=== PATIENT | female | born 1965 | race African-American/Black ===

== ENCOUNTER 2017-05-31 12:06 | Observation (INO) | payer OTHER ==
[2017-05-31] VITALS (7 sets, daily range): BP systolic 113–171; BP diastolic 61–90; PULSE 75–91; RESP 15–20; TEMP 97.9–98.5; O2SAT 98–99
[~2017-05-31] VITALS: Ht 165.1 cm; Wt 75.0 kg
[2017-05-31] MEDS ORDERED: AMLO5TAB2 PO (12:15)
--- NOTE | 2017-05-31 12:45 | RADRPT ---
EXAM DATE/TIME: 05/31/2017 12:29 [facility] COMPARISON: No previous studies available for comparison. INDICATIONS : Cephalgia with left side numbness. RADIATION DOSE: 32.60 CTDIvol (mGy) MEDICAL HISTORY : Hypertension. SURGICAL HISTORY : Hysterectomy. ENCOUNTER: Initial ACUITY: 1 day PAIN SCALE: 6/10 LOCATION: Bilateral cranial TECHNIQUE: Multiple contiguous axial images were obtained of the head. Using automated exposure control and adj ustment of the mA and/or kV according to patient size, radiation dose was kept as low as reasonably a chievable to obtain optimal diagnostic quality images. DICOM format image data is available electro nically for review and comparison. FINDINGS: CEREBRUM: The ventricles are normal for age. No evidence of midline shift, mass lesion, hemorrhage or acute in farction. No extra-axial fluid collections are seen. POSTERIOR FOSSA: The cerebellum and brainstem are intact. The 4th ventricle is midline. The cerebellopontine angle i s unremarkable. EXTRACRANIAL: The visualized portion of the orbits is intact. SKULL: The calvaria is intact. No evidence of skull fracture. CONCLUSION: Normal examination. Daniel Boswell MD on May 31, 2017 at 12:41 Board Certified Radiologist. This report was verified electronically.
[2017-05-31 12:49] LABS: AUTOMATED NEUTROPHIL # 4.8 TH/MM3 (1.8-7.7); BASOPHIL # 0.1 TH/MM3 (0-0.2); BASOPHIL % 0.8 % (0.0-2.0); EOSINOPHIL # 0.1 TH/MM3 (0-0.4); EOSINOPHIL % 0.7 % (0.0-4.0); HEMATOCRIT 39.8 % (35.0-46.0); HEMO FLAGS DIFF FINAL; LYMPH % 37.9 % (9.0-44.0); LYMPHOCYTE # 3.4 TH/MM3 (1.0-4.8); MEAN CELL VOLUME 91.8 FL (80.0-100.0); MEAN CORPUSCULAR HEMOGLOBIN 30.7 PG (27.0-34.0); MEAN CORPUSCULAR HGB CONC 33.5 % (32.0-36.0); MONO % 6.9 % (0.0-8.0); NEUT % 53.7 % (16.0-70.0); PLATELET COUNT 222 TH/MM3 (150-450); RED BLOOD COUNT 4.33 MIL/MM3 (4.00-5.30); RED CELL DISTRIBUTION WIDTH 13.4 % (11.6-17.2); WHITE BLOOD COUNT 8.9 TH/MM3 (4.0-11.0)
[2017-05-31 12:58] LABS: APTT (PATIENT) 23.4 SEC (24.3-30.1); PROTHROMBIN TIME - PATIENT 10.7 SEC (9.8-11.6)
--- NOTE | 2017-05-31 13:08 | RADRPT ---
EXAM DATE/TIME: 05/31/2017 12:53 [facility] COMPARISON: No previous studies available for comparison. INDICATIONS : Chest pain and shortness of breath. MEDICAL HISTORY : Hypertension. Diabetes mellitus type II. SURGICAL HISTORY : None. ENCOUNTER: Initial ACUITY: 1 day PAIN SCORE: 8/10 LOCATION: Bilateral chest FINDINGS: Portable AP view of the chest demonstrates a normal-sized cardiac silhouette. No effusion, consolidat ion, or pneumothorax is visualized. Lungs are underinflated with atelectasis at the lung bases. The b ones and soft tissues demonstrate no acute abnormality. CONCLUSION: Underinflated examination with mild atelectasis at the lung bases. No acute cardiopulmonary abnormali ty is identified. Daniel Townsend MD on May 31, 2017 at 13:06 Board Certified Radiologist. This report was verified electronically.
[2017-05-31 13:10] LABS: ANION GAP 8 MEQ/L (5-15); AST (GOT) 17 U/L (15-37); BICARBONATE 23.6 MEQ/L (21.0-32.0); BLOOD UREA NITROGEN 11 MG/DL (7-18); CHLORIDE 107 MEQ/L (98-107); GLOMERULAR FILTRATION RATE 76 ML/MIN (>89); MAGNESIUM 1.8 MG/DL (1.5-2.5); POTASSIUM 3.6 MEQ/L (3.5-5.1); SODIUM (NA) 139 MEQ/L (136-145)
[2017-05-31 13:15] LABS: ALKALINE PHOSPHATASE 114 U/L (45-117); ALT (GPT) 20 U/L (10-53); CREATINE KINASE 166 U/L (26-192); TOTAL BILIRUBIN ADULT 0.3 MG/DL (0.2-1.0)
[2017-05-31] MEDS ORDERED: NITROGLYCERIN 0.4 MG SL 25 TABS/BTL SL ONE (13:15)
[2017-05-31] MEDS ORDERED: ASPIRIN 325 MG TAB PO ONE (13:15)
[2017-05-31 13:27] LABS: CKMB 1.4 NG/ML (0.5-3.6)
--- NOTE | 2017-05-31 13:29 | PD ---
HPI Chief Complaint: Chest Pain Time Seen by Provider: 12:16 Travel History International Travel<30 days: No Contact w/Intl Traveler<30days: No Traveled to known affect area: No History of Present Illness HPI 51-year-old female presents by ambulance with headache and chest pain since 8 AM this morning. She states that she feels tingly to the left side of her body and face and this is been going on since early this morning with her headache and chest pain. She states no other specific complaints on initial evaluation But is a poor historian. She states she feels worse when she moves around. She denies other modifying factors. She has not taken anything for her headache or chest pain yet today including aspirin. She states she didn't take her blood pressure medication this morning. Significant additional details are limited and supplemented by the ambulance team [facility] Past Medical History Cardiovascular Problems: Yes Patient Takes Glucophage: No Hypertension: Yes ?: Not Past Surgical History Gynecologic Surgery: Yes Hysterectomy: Yes Social History Alcohol Use: No Tobacco Use: No Substance Use: No Allergies-Medications (Allergen,Severity, Reaction): Coded Allergies: morphine (Verified Allergy, Severe, 05/31/17) Reported Meds & Prescriptions Reported Meds & Active Scripts Active Reported Amlodipine (Amlodipine Besylate) 5 Mg Tab 5 Mg PO BID Review of Systems Except as stated in HPI: all other systems reviewed are Neg Physical Exam Narrative GENERAL: Well-nourished, well-developed patient. SKIN: Warm and dry. HEAD: Normocephalic and atraumatic. EYES: No injection or drainage. Pupils pinpoint ENT: No nasal drainage noted. NECK: Supple, trachea midline. CARDIOVASCULAR: Regular rate and rhythm RESPIRATORY: Breath sounds equal bilaterally. No accessory muscle use. GASTROINTESTINAL: Abdomen soft, non-tender, nondistended. EXTREMITIES: No edema. NEUROLOGICAL: Awake and alert. Motor and sensory grossly within normal limits other than states left side of face feels tingly. Normal speech. No facial droop, 5 out of 5 in all 4 extremities, equal grasp bilaterally after effort because patient states it is painful Data Data Last Documented VS Vital Signs Date Time Temp Pulse Resp B/P (MAP) Pulse Ox O2 Delivery O2 Flow Rate FiO2 05/31/17 14:36 75 15 146/87 (106) 99 Room Air Orders Orders Magnesium (Mg) (05/31/17 12:17) Phosphorus (Po4) (05/31/17 12:17) Complete Blood Count With Diff (05/31/17 12:17) Comprehensive Metabolic Panel (05/31/17 12:17) Ckmb (Isoenzyme) Profile (05/31/17 12:17) Troponin I (05/31/17 12:17) Urinalysis - C+S If Indicated (05/31/17 12:17) Act Partial Throm Time (Ptt) (05/31/17 12:17) Prothrombin Time / Inr (Pt) (05/31/17 12:17) Ct Brain W/O Iv Contrast(Rout) (05/31/17 ) Chest, Single Ap (05/31/17 ) Electrocardiogram (05/31/17 ) Iv Access Insert/Monitor (05/31/17 12:17) Ecg Monitoring (05/31/17 12:17) Oximetry (05/31/17 12:17) Nitroglycerin Sl (Nitrostat Sl) (05/31/17 13:15) Aspirin (Aspirin) (05/31/17 13:15) Nursing Bedside Swallow Assess .ONCE (05/31/17 13:12) CKMB (05/31/17 12:23) CKMB% (05/31/17 12:23) Prochlorperazine Inj (Compazine Inj) (05/31/17 14:30) Diphenhydramine Inj (Benadryl Inj) (05/31/17 14:30) Ketorolac Inj (Toradol Inj) (05/31/17 14:30) Admit Order (Ed Use Only) (05/31/17 15:15) Labs Laboratory Tests Test 05/31/17 12:23 05/31/17 14:15 White Blood Count 8.9 TH/MM3 Red Blood Count 4.33 MIL/MM3 Hemoglobin 13.3 GM/DL Hematocrit 39.8 % Mean Corpuscular Volume 91.8 FL Mean Corpuscular Hemoglobin 30.7 PG Mean Corpuscular Hemoglobin Concent 33.5 % Red Cell Distribution Width 13.4 % Platelet Count 222 TH/MM3 Mean Platelet Volume 9.0 FL Neutrophils (%) (Auto) 53.7 % Lymphocytes (%) (Auto) 37.9 % Monocytes (%) (Auto) 6.9 % Eosinophils (%) (Auto) 0.7 % Basophils (%) (Auto) 0.8 % Neutrophils # (Auto) 4.8 TH/MM3 Lymphocytes # (Auto) 3.4 TH/MM3 Monocytes # (Auto) 0.6 TH/MM3 Eosinophils # (Auto) 0.1 TH/MM3 Basophils # (Auto) 0.1 TH/MM3 CBC Comment DIFF FINAL Differential Comment Prothrombin Time 10.7 SEC Prothromb Time International Ratio 1.0 RATIO Activated Partial Thromboplast Time 23.4 SEC Blood Urea Nitrogen 11 MG/DL Creatinine 0.94 MG/DL Random Glucose 92 MG/DL Total Protein 8.1 GM/DL Albumin 3.8 GM/DL Calcium Level 9.0 MG/DL Phosphorus Level 2.3 MG/DL Magnesium Level 1.8 MG/DL Alkaline Phosphatase 114 U/L Aspartate Amino Transf (AST/SGOT) 17 U/L Alanine Aminotransferase (ALT/SGPT) 20 U/L Total Bilirubin 0.3 MG/DL Sodium Level 139 MEQ/L Potassium Level 3.6 MEQ/L Chloride Level 107 MEQ/L Carbon Dioxide Level 23.6 MEQ/L Anion Gap 8 MEQ/L Estimat Glomerular Filtration Rate 76 ML/MIN Total Creatine Kinase 166 U/L Creatine Kinase MB 1.4 NG/ML Troponin I LESS THAN 0.02 NG/ML Urine Color COLORLESS Urine Turbidity CLEAR Urine pH 6.0 Urine Specific [place] 1.003 Urine Protein NEG mg/dL Urine Glucose (UA) NEG mg/dL Urine Ketones NEG mg/dL Urine Occult Blood NEG Urine Nitrite NEG Urine Bilirubin NEG Urine Urobilinogen LESS THAN 2.0 MG/DL Urine Leukocyte Esterase NEG Urine WBC LESS THAN 1 /hpf Urine Squamous Epithelial Cells <1 /hpf Microscopic Urinalysis Comment CULT NOT INDICATED MDM Medical Decision Making Medical Screen Exam Complete: Yes Emergency Medical Condition: Yes Medical Record Reviewed: Yes (past history confirmed) Interpretation(s) EKG shows NSR, no ST elevation or depression, and no arrhythmias. No significant T-wave inversions. CBC & BMP Diagram 05/31/17 12:23 Total Protein 8.1, Albumin 3.8, Calcium Level 9.0, Phosphorus Level 2.3 L, Magnesium Level 1.8, Alkaline Phosphatase 114, Aspartate Amino Transf (AST/SGOT ) 17, Alanine Aminotransferase (ALT/SGPT) 20, Total Bilirubin 0.3 Last [address] 05/31/17 0000 Signed Impressions: Service Date/Time: Wednesday, May 31, 2017 12:29 - CONCLUSION: Normal examination. Daniel Boswell MD Chest X-Ray 05/31/17 0000 Signed Impressions: Service Date/Time: Wednesday, May 31, 2017 12:53 - CONCLUSION: Underinflated examination with mild atelectasis at the lung bases. No acute cardiopulmonary abnormality is identified. Daniel Townsend MD Differential Diagnosis Intercranial bleed, atypical stroke, cardiac, musculoskeletal, gastritis, migraine Narrative Course Will check blood work, chest x-ray, CT brain and reevaluate CT brain without bleed will dose with aspirin and nitroglycerin and reevaluate Will give migraine cocktail with Toradol, Benadryl, Compazine and recheck On recheck patient states her head is still feeling better but she is still having chest pressure. Agrees to chest pain center observation. Can follow-up outpatient for likely migraine with associated numbness Physician Communication Physician Communication dr ontiveros states in terms of neurologic workup can follow up outpatient if symptoms stay the same and will need blood pressure control Diagnosis Primary Impression: Chest pain Qualified Codes: R07.9 - Chest pain, unspecified Admitting Information Admitting Physician Requests: Observation Gosia Sandhu MD May 31, 2017 13:29
[2017-05-31] MEDS ORDERED: diphenhydrAMINE HCL 50 MG/ML VIAL IVP ONE (14:30)
[2017-05-31] MEDS ORDERED: KETOROLAC TROMETHAMINE 30 MG/ML (IVP) VIAL IV PUSH ONE (14:30)
[2017-05-31] MEDS ORDERED: PROCHLORPERAZINE INJ 10 MG/2 ML VIAL IVP ONE (14:30)
[2017-05-31 14:53] LABS: BLOOD, URINE NEG (NEG); GLUCOSE,URINE NEG (NEG); KETONE, URINE NEG (NEG); NITRITE,URINE NEG (NEG); SQUAMOUS EPITHELIAL CELL URINE <1 /hpf (0-5); URINE COLOR COLORLESS (YELLW/STRAW)
[2017-05-31 14:55] LABS: COMMENT (UR) CULT NOT INDICATED; CULTURE IF INDICATED CULT NOT INDICATED
[2017-05-31] MEDS ORDERED: TEMAZEPAM 15 MG CAP PO PRN (16:00)
[2017-05-31] MEDS ORDERED: cloNIDine HCL 0.1 MG TAB PO PRN (16:00)
[2017-05-31] MEDS ORDERED: ALPRAZolam 0.25 MG TAB PO PRN (16:00)
[2017-05-31] MEDS ORDERED: RESP: ALBUTEROL 2.5 MG/IPRATROPIUM 0.5 MG NEB (PRN) INH (16:00)
[2017-05-31] MEDS ORDERED: ONDANSETRON HCL 4 MG/2 ML VIAL IV PUSH PRN (16:00)
[2017-05-31] MEDS ORDERED: SODIUM CHLORIDE 0.9% FLUSH 5 ML FLUSH IVF PRN (16:00)
--- NOTE | 2017-05-31 16:09 | HHI.HP ---
HPI Primary Care Physician No Primary Care Physician Chief Complaint Chest pain and headache History of Present Illness This is a 51-year-old female history of hypertension and hyperlipidemia that presents via ambulance with a complaint of developing a chest tightness and frontal headache while she was at work. She was doing prep work in the kitchen. Describes the headache as a frontal headache and lasted for hours. The chest discomfort was tightness and she states that it was across the chest. Chest discomfort lasted 30 minutes. She was short of breath and diaphoretic no nausea. She felt lightheaded and had tingling sensations in all extremities. Denies weakness. Denies headache. Denies loss of consciousness. Found nothing to worsen or improve her symptoms. Headache and discomfort are currently resolved. Denies history of coronary artery disease. States she was evaluated about a year ago at a different hospital and attempted a stress test on the treadmill but was unable to walk long enough and was converted to a chemical stress test which she states was normal. History of hypertension voices compliance with the medication. Also states she has hyperlipidemia but has never had medication for this. Denies recent illness. Denies fevers or chills. Review of Systems General: Patient denies fevers, chills recent, and recent travel HEENT: Complains of frontal headache. Patient denies sore throat, difficulty swallowing. Cardiovascular: Has the chest discomfort as mentioned above. Denies sensation of heart beating rapidly or irregularly. No syncope. Complained of diaphoresis. Respiratory: She was short of breath. Denies inspirational chest discomfort. Denies coughing wheezing or hemoptysis. GI: Patient denies nausea, vomiting, diarrhea, abdominal pain, bloody stools. Musculoskeletal: Patient denies joint pain or edema. Denies calf pain or edema. Neurovascular: Had tingling in all extremities. Patient denies numbness, weakness in extremities. Complained of frontal headache. Endocrine: Denies polyuria and polydipsia. Hematologic: Denies easy bruising. Skin: Denies rash or itching. Past Family Social History Allergies: Coded Allergies: morphine (Verified Allergy, Severe, 05/31/17) Past Medical History I pretension and hyperlipidemia. Denies diabetes and CAD. Reported Medications Reported Meds & Active Scripts Active Reported Amlodipine (Amlodipine Besylate) 5 Mg Tab 5 Mg PO BID Active Ordered Medications Current Medications Medications (Trade) Dose Ordered Sig/Nick Route Start Time Stop Time Status Last Admin (NS Flush) 2 ml UNSCH PRN IVF 05/31/17 16:00 UNV (NS Flush) 2 ml BID IVF 05/31/17 21:00 UNV (Tylenol) 500 mg Q4H PRN PO 05/31/17 16:00 UNV (Zofran Inj) 4 mg Q6H PRN IV PUSH 05/31/17 16:00 UNV (Aspirin) 325 mg DAILY PO 06/01/17 09:00 UNV (Restoril) 15 mg HS PRN PO 05/31/17 16:00 UNV (Xanax) 0.25 mg Q8H PRN PO 05/31/17 16:00 UNV (Duoneb Neb) 1 ampule Q4HR NEB PRN INH 05/31/17 16:00 UNV (Catapres) 0.1 mg Q4H PRN PO 05/31/17 16:00 UNV Family History Denies family history of CAD but states she has a brother that had a stroke his 50s. Social History Nonsmoker. Denies alcohol or illicit drugs. Physical Exam Vital Signs Vital Signs Date Time Temp Pulse Resp B/P (MAP) Pulse Ox O2 Delivery O2 Flow Rate FiO2 05/31/17 14:36 75 15 146/87 (106) 99 Room Air 05/31/17 12:19 18 98 Room Air 05/31/17 12:17 91 18 171/90 (117) 99 Physical Exam GENERAL: This is a well-nourished, well-developed patient, in no apparent distress. Patient speaks in clear complete sentences. Patient is pleasant. HEENT: Head is atraumatic and normocephalic. Neck is supple without lymphadenopathy and trachea is midline. No JVD or carotid bruits. CARDIOVASCULAR: Regular rate and rhythm without murmurs, gallops, or rubs. RESPIRATORY: Clear to auscultation. Breath sounds equal bilaterally. No wheezes , rales, or rhonchi. Chest wall is tender essentially throughout the entire anterior chest wall although she states that it is not the same discomfort that brought her to the ED. No use of accessory muscles. GASTROINTESTINAL: Abdomen is nontender, nondistended. Abdomen soft. No obvious pulsatile mass or bruit. No CVA tenderness. Strong femoral pulses bilaterally. Normal bowel sounds in all quadrants. MUSCULOSKELETAL: Patient is moving upper and lower extremities freely. No calf tenderness or edema, no Homans sign. Strong pulses in upper and lower extremities. NEUROLOGICAL: Patient is alert and oriented. Cranial nerves 2-12 are grossly intact. No focal deficits and speech is clear. SKIN: No rash and turgor is normal. Laboratory Laboratory Tests Test 05/31/17 12:23 05/31/17 14:15 White Blood Count 8.9 Red Blood Count 4.33 Hemoglobin 13.3 Hematocrit 39.8 Mean Corpuscular Volume 91.8 Mean Corpuscular Hemoglobin 30.7 Mean Corpuscular Hemoglobin Concent 33.5 Red Cell Distribution Width 13.4 Platelet Count 222 Mean Platelet Volume 9.0 Neutrophils (%) (Auto) 53.7 Lymphocytes (%) (Auto) 37.9 Monocytes (%) (Auto) 6.9 Eosinophils (%) (Auto) 0.7 Basophils (%) (Auto) 0.8 Neutrophils # (Auto) 4.8 Lymphocytes # (Auto) 3.4 Monocytes # (Auto) 0.6 Eosinophils # (Auto) 0.1 Basophils # (Auto) 0.1 CBC Comment DIFF FINAL Differential Comment Prothrombin Time 10.7 Prothromb Time International Ratio 1.0 Activated Partial Thromboplast Time 23.4 Blood Urea Nitrogen 11 Creatinine 0.94 Random Glucose 92 Total Protein 8.1 Albumin 3.8 Calcium Level 9.0 Phosphorus Level 2.3 Magnesium Level 1.8 Alkaline Phosphatase 114 Aspartate Amino Transf (AST/SGOT) 17 Alanine Aminotransferase (ALT/SGPT) 20 Total Bilirubin 0.3 Sodium Level 139 Potassium Level 3.6 Chloride Level 107 Carbon Dioxide Level 23.6 Anion Gap 8 Estimat Glomerular Filtration Rate 76 Total Creatine Kinase 166 Creatine Kinase MB 1.4 Troponin I LESS THAN 0.02 Urine Color COLORLESS Urine Turbidity CLEAR Urine pH 6.0 Urine Specific [place] 1.003 Urine Protein NEG Urine Glucose (UA) NEG Urine Ketones NEG Urine Occult Blood NEG Urine Nitrite NEG Urine Bilirubin NEG Urine Urobilinogen LESS THAN 2.0 Urine Leukocyte Esterase NEG Urine WBC LESS THAN 1 Urine Squamous Epithelial Cells <1 Microscopic Urinalysis Comment CULT NOT INDICATED Result Diagram: 05/31/17 1223 05/31/17 1223 Imaging Last [address] 05/31/17 0000 Signed Impressions: Service Date/Time: Wednesday, May 31, 2017 12:29 - CONCLUSION: Normal examination. Daniel Boswell MD Chest X-Ray 05/31/17 0000 Signed Impressions: Service Date/Time: Wednesday, May 31, 2017 12:53 - CONCLUSION: Underinflated examination with mild atelectasis at the lung bases. No acute cardiopulmonary abnormality is identified. Daniel Townsend MD Course Initial EKG is sinus rhythm rate of [address] segment depressions or elevations. Caprini VTE Risk Assessment Caprini VTE Risk Assessment: No/Low Risk (score <= 1) Caprini Risk Assessment Model Point Value = 1 Point Value = 2 Point Value = 3 Point Value = 5 Age 41-60 Minor surgery BMI > 25 kg/m2 Swollen legs Varicose veins or History of unexplained or recurrent spontaneous Oral contraceptives or hormone replacement Sepsis (< 1 month) Serious lung disease, including pneumonia (< 1 month) Abnormal pulmonary function Acute myocardial infarction Congestive heart failure (< 1 month) History of inflammatory bowel disease Medical patient at bed rest Age 61-74 Arthroscopic surgery Major open surgery (> 45 min) Laparoscopic surgery (> 45 min) Malignancy Confined to bed (> 72 hours) Immobilizing plaster cast Central venous access Age >= 75 History of VTE Family history of VTE Factor V Leiden Prothrombin [id number] Lupus anticoagulant Anticardiolipin antibodies Elevated serum homocysteine Heparin-induced thrombocytopenia Other congenital or acquired thrombophilia Stroke (< 1 month) Elective arthroplasty Hip, pelvis, or leg fracture Acute spinal cord injury (< 1 month) Prophylaxis Regimen Total Risk Factor Score Risk Level Prophylaxis Regimen 0-1 Low Early ambulation 2 Moderate Order ONE of the following: *Sequential Compression Device (SCD) *Heparin 5000 units SQ BID 3-4 Higher Order ONE of the following medications: *Heparin 5000 units SQ TID *Enoxaparin/Lovenox 40 mg SQ daily (WT < 150 kg, CrCl > 30 mL/min) *Enoxaparin/Lovenox 30 mg SQ daily (WT < 150 kg, CrCl > 10-29 mL/min) *Enoxaparin/Lovenox 30 mg SQ BID (WT < 150 kg, CrCl > 30 mL/min) AND/OR *Sequential Compression Device (SCD) 5 or more Highest Order ONE of the following medications: *Heparin 5000 units SQ TID (Preferred with Epidurals) *Enoxaparin/Lovenox 40 mg SQ daily (WT < 150 kg, CrCl > 30 mL/min) *Enoxaparin/Lovenox 30 mg SQ daily (WT < 150 kg, CrCl > 10-29 mL/min) *Enoxaparin/Lovenox 30 mg SQ BID (WT < 150 kg, CrCl > 30 mL/min) AND *Sequential Compression Device (SCD) Assessment and Plan Assessment and Plan * Chest pain: Patient will continue to have serial cardiac enzymes and EKGs for ruling out purposes. She'll be seen by Dr. Jose Salinas of cardiology in the chest pain center. She will likely spend the evening in the chest pain center to rule out and have stress testing in the morning which will likely be a Lexiscan as he states she was unable to complete a treadmill a year ago. She will be discharged home with instructions to follow-up with her PCP if stress test is nonischemic. * Hypertension: Continue current medication. * Hyperlipidemia: Patient states she has never taken medication for this. She will need to follow-up with a primary care physician regarding this. Patient is stable at this time. She is agreeable to this plan. Randy Burgos May 31, 2017 16:09
[2017-05-31 16:50] LABS: CREATINE KINASE 148 U/L (26-192)
[2017-05-31 17:02] LABS: CKMB 1.1 NG/ML (0.5-3.6)
[2017-05-31] MEDS: ACETAMINOPHEN 500 MG CPLT PO PRN (17:40)
[2017-05-31 19:12] LABS: CREATINE KINASE 134 U/L (26-192)
[2017-05-31 19:24] LABS: CKMB 1.2 NG/ML (0.5-3.6)
[2017-05-31] MEDS: SODIUM CHLORIDE 0.9% FLUSH 5 ML FLUSH IVF SCH (21:00)
[2017-05-31] MEDS: amLODIPine BESYLATE 5 MG TAB PO SCH (21:47)
[2017-06-01] VITALS: PULSE 73
[2017-06-01 02:56] VITALS: BP 103/72; PULSE 78; RESP 16; TEMP 98.4; O2SAT 99
[2017-06-01] MEDS: ACETAMINOPHEN 500 MG CPLT PO PRN (03:05)
[2017-06-01 03:54] VITALS: PULSE 65
[2017-06-01 05:05] VITALS: O2SAT 98
--- NOTE | 2017-06-01 07:40 | PD.CARD.PN ---
Subjective Subjective Remarks Intermittent nonexertional chest tightness accompanied with numbness/tingling bilateral arms throughout night. Complaining of headache never completely resolved but has improved. Headache described as intermittent, right side throbbing without vision changes or nausea. Objective Medications Current Medications Medications (Trade) Dose Ordered Sig/Nick Route Start Time Stop Time Status Last Admin (NS Flush) 2 ml UNSCH PRN IVF 05/31/17 16:00 (NS Flush) 2 ml BID IVF 05/31/17 21:00 05/31/17 21:00 (Tylenol) 500 mg Q4H PRN PO 05/31/17 16:00 06/01/17 03:05 (Zofran Inj) 4 mg Q6H PRN IV PUSH 05/31/17 16:00 (Aspirin) 325 mg DAILY PO 06/01/17 09:00 (Restoril) 15 mg HS PRN PO 05/31/17 16:00 (Xanax) 0.25 mg Q8H PRN PO 05/31/17 16:00 (Duoneb Neb) 1 ampule Q4HR NEB PRN INH 05/31/17 16:00 (Catapres) 0.1 mg Q4H PRN PO 05/31/17 16:00 (Norvasc) 5 mg BID PO 05/31/17 21:00 05/31/17 21:47 Vital Signs / I&O Vital Signs Date Time Temp Pulse Resp B/P (MAP) Pulse Ox O2 Delivery O2 Flow Rate FiO2 06/01/17 05:05 98 06/01/17 04:16 18 06/01/17 03:54 65 06/01/17 02:56 98.4 78 16 103/72 (82) 99 06/01/17 00:00 73 05/31/17 23:08 98.5 80 17 113/61 (78) 98 05/31/17 20:32 98.2 88 17 120/71 (87) 98 05/31/17 20:04 77 05/31/17 17:06 97.9 81 20 115/69 (84) 98 05/31/17 16:36 05/31/17 14:36 75 15 146/87 (106) 99 Room Air 05/31/17 12:19 18 98 Room Air 05/31/17 12:17 91 18 171/90 (117) 99 Physical Exam GENERAL: Alert WN, WD, NAD, pleasant, female. HEAD: NC, AT CV: RRR, without murmur, rub, gallop, no JVD, S1-S2 no S3-S4. RESP: Clear lungs throughout bilateral, no crackles, wheeze, rhonchi, symmetrical chest rise, nonlabored, able to speak in full sentences EXT: Pulses +24, no dependent edema MS: Normal tone 4 extremities, full range of motion PSYCH: A+O 3, pleasant affect, appropriate speech, insight and judgment Laboratory Laboratory Tests Test 05/31/17 12:23 05/31/17 14:15 05/31/17 16:01 05/31/17 18:23 White Blood Count 8.9 TH/MM3 Red Blood Count 4.33 MIL/MM3 Hemoglobin 13.3 GM/DL Hematocrit 39.8 % Mean Corpuscular Volume 91.8 FL Mean Corpuscular Hemoglobin 30.7 PG Mean Corpuscular Hemoglobin Concent 33.5 % Red Cell Distribution Width 13.4 % Platelet Count 222 TH/MM3 Mean Platelet Volume 9.0 FL Neutrophils (%) (Auto) 53.7 % Lymphocytes (%) (Auto) 37.9 % Monocytes (%) (Auto) 6.9 % Eosinophils (%) (Auto) 0.7 % Basophils (%) (Auto) 0.8 % Neutrophils # (Auto) 4.8 TH/MM3 Lymphocytes # (Auto) 3.4 TH/MM3 Monocytes # (Auto) 0.6 TH/MM3 Eosinophils # (Auto) 0.1 TH/MM3 Basophils # (Auto) 0.1 TH/MM3 CBC Comment DIFF FINAL Differential Comment Prothrombin Time 10.7 SEC Prothromb Time International Ratio 1.0 RATIO Activated Partial Thromboplast Time 23.4 SEC Blood Urea Nitrogen 11 MG/DL Creatinine 0.94 MG/DL Random Glucose 92 MG/DL Total Protein 8.1 GM/DL Albumin 3.8 GM/DL Calcium Level 9.0 MG/DL Phosphorus Level 2.3 MG/DL Magnesium Level 1.8 MG/DL Alkaline Phosphatase 114 U/L Aspartate Amino Transf (AST/SGOT) 17 U/L Alanine Aminotransferase (ALT/SGPT) 20 U/L Total Bilirubin 0.3 MG/DL Sodium Level 139 MEQ/L Potassium Level 3.6 MEQ/L Chloride Level 107 MEQ/L Carbon Dioxide Level 23.6 MEQ/L Anion Gap 8 MEQ/L Estimat Glomerular Filtration Rate 76 ML/MIN Total Creatine Kinase 166 U/L 148 U/L 134 U/L Creatine Kinase MB 1.4 NG/ML 1.1 NG/ML 1.2 NG/ML Troponin I LESS THAN 0.02 NG/ML LESS THAN 0.02 NG/ML LESS THAN 0.02 NG/ML Urine Color COLORLESS Urine Turbidity CLEAR Urine pH 6.0 Urine Specific [place] 1.003 Urine Protein NEG mg/dL Urine Glucose (UA) NEG mg/dL Urine Ketones NEG mg/dL Urine Occult Blood NEG Urine Nitrite NEG Urine Bilirubin NEG Urine Urobilinogen LESS THAN 2.0 MG/DL Urine Leukocyte Esterase NEG Urine WBC LESS THAN 1 /hpf Urine Squamous Epithelial Cells <1 /hpf Microscopic Urinalysis Comment CULT NOT INDICATED Assessment and Plan Assessment and Plan #1 Chest pain-ruled out with 3 sets of EKG and cardiac enzymes. Proceed with chemical stress testing. Patient agreeable to plan of care. If stress testing unremarkable, will discharge with follow up with PCP in [place], [place]. #2 Cephalgia-improving, additional dose Toradol 30mg IV, CT head unremarkable without any acute findings. #3 Hypertension-continue amlodipine, discussed importance of tight blood pressure control. Jenise Bhatt Jun 01, 2017 07:40
[2017-06-01 07:41] VITALS: BP 115/73; PULSE 77; RESP 18; TEMP 95.7; O2SAT 97
[2017-06-01] MEDS ORDERED: KETOROLAC TROMETHAMINE 30 MG/ML (IVP) VIAL IV PUSH ONE (07:45)
[2017-06-01] MEDS: SODIUM CHLORIDE 0.9% FLUSH 5 ML FLUSH IVF SCH (07:57)
[2017-06-01] MEDS: amLODIPine BESYLATE 5 MG TAB PO SCH (07:57)
[2017-06-01] MEDS ORDERED: ASPIRIN 325 MG TAB PO SCH (09:00)
[2017-06-01] MEDS ORDERED: REGADENOSON INJ 0.4 MG/5 ML SYR ONE ×2 (09:04→11:00)
[2017-06-01 13:28] VITALS: BP 107/57; PULSE 67; RESP 18; TEMP 96.6; O2SAT 100
--- NOTE | 2017-06-01 13:47 | RADRPT ---
EXAM DATE/TIME: 06/01/2017 08:57 [place] COMPARISON: No previous studies available for comparison. INDICATIONS : Mid chest pain with shortness of breath and a headache for one day. Angina. DOSE: 25.5 mCi Tc99m Myoview at stress. 8.7 mCi Tc99m Myoview at rest. 0.4 mg Lexiscan STRESS SYMPTOMS: Shortness of breath and dizzy. EJECTION FRACTION: 67% MEDICAL HISTORY : Hypertension. SURGICAL HISTORY : Hysterectomy. ENCOUNTER: Initial ACUITY: 1 day PAIN SCALE: 5/10 LOCATION: Midsternal chest TECHNIQUE: The patient underwent pharmacologic stress with infusion of prescribed dose. Continuous ECG tracing was monitored during stress. Gated SPECT imaging was performed after stress and conventional SPECT i maging was performed at rest. The examination was performed on a SPECT/CT scanner, both attenuation and non-corrected datasets were reviewed. FINDINGS: DISTRIBUTION: The maximum perfused segment at stress is in the anterior wall. PERFUSION STUDY: The pattern of perfusion at stress is within normal limits. GATED STUDY: There is intact wall motion and thickening without hypokinetic or dyskinetic segments. CONCLUSION: Normal examination. RISK CATEGORY: Low (<1% Annual Mortality Rate) Daniel Boswell MD on June 01, 2017 at 13:41 Board Certified Radiologist. This report was verified electronically.
--- NOTE | 2017-06-01 14:24 | HHI.DCPOC ---
Discharge Care Plan Diagnosis: (1) Atypical chest pain (2) Cephalgia Goals to Promote Your Health * To prevent worsening of your condition and complications * To maintain your health at the optimal level Directions to Meet Your Goals Take your medications as prescribed Follow your dietary instruction Follow activity as directed Keep your appointments as scheduled Take your immunizations and boosters as scheduled If your symptoms worsen call your PCP, if no PCP go to Urgent Care Center or Emergency Room Smoking is Dangerous to Your Health. Avoid second hand smoke Call the 24-hour hour crisis hotline for domestic abuse at Jenise Bhatt Jun 01, 2017 14:24
--- NOTE | 2017-06-01 15:24 | HHI.DS ---
Discharge Summary Admission Date May 31, 2017 at 15:17 Discharge Date: Jun 01, 2017 Admitting Diagnosis chest pain Brief History 51 year old female with history of hypertension or hyperlipidemia presents to the ER for further evaluation of chest pain and a headache. Admitted to chest pain center. Seen and evaluated by Dr. Jose Salinas. Completed chemical stress test which was unremarkable. After further discussion patient has been a longtime suffer of headaches lasting days at a time every few months. CBC/BMP: 05/31/17 1223 05/31/17 1223 Significant Findings Laboratory Tests Test 05/31/17 12:23 05/31/17 14:15 05/31/17 16:01 05/31/17 18:23 Activated Partial Thromboplast Time 23.4 SEC (24.3-30.1) Phosphorus Level 2.3 MG/DL (2.5-4.9) Estimat Glomerular Filtration Rate 76 ML/MIN (>89) Troponin I LESS THAN 0.02 NG/ML LESS THAN 0.02 NG/ML LESS THAN 0.02 NG/ML Imaging Last Impressions Myocardial Perfusion Scan Nuc Med 06/01/17 0000 Signed Impressions: Service Date/Time: May 08:57 - CONCLUSION: Normal examination. RISK CATEGORY: Low (<1%% Annual Mortality Rate) Daniel Boswell MD Head CT 05/31/17 0000 Signed Impressions: Service Date/Time: Wednesday, May 31, 2017 12:29 - CONCLUSION: Normal examination. Daniel Boswell MD Chest X-Ray 05/31/17 0000 Signed Impressions: Service Date/Time: Wednesday, May 31, 2017 12:53 - CONCLUSION: Underinflated examination with mild atelectasis at the lung bases. No acute cardiopulmonary abnormality is identified. Daniel Townsend MD PE at Discharge GENERAL: Alert WN, WD, NAD, pleasant, female HEAD: NC, AT CV: RRR, without murmur, rub, gallop, no JVD, S1-S2 no S3-S4. RESP: Clear lungs throughout bilateral, no crackles, wheeze, rhonchi, symmetrical chest rise, nonlabored, able to speak in full sentences ABD: Soft, NT, ND, no masses, positive bowel tones EXT: Pulses +24, no dependent edema MS: Normal tone 4 extremities, full range of motion NEURO: motor strength 5/5 PSYCH: A+O 3, pleasant affect SKIN: Normal turgor, normal texture Hospital Course Discharge home with follow up with PCP. States headache nearly resolved and pleased to being discharge this afternoon. Requesting to return to work tomorrow. Pt Condition on Discharge: Good Discharge Disposition: Discharge Home Discharge Instructions DIET: Follow Instructions for: Heart Healthy Diet Activities you can perform: Regular-No Restrictions Jenise Bhatt Jun 01, 2017 15:24
--- NOTE | 2017-06-01 18:21 | EKG ---
Date Performed: 05/31/2017 Time Performed: 13:12:57 PTAGE: 51 years EKG: Sinus rhythm POSSIBLE LEFT ATRIAL ENLARGEMENT BORDERLINE ECG NO PREVIOUS TRACING DOCTOR: Purnima Slater Interpretating Date/Time 06/01/2017 18:21:27
--- NOTE | 2017-06-01 18:22 | EKG ---
Date Performed: 05/31/2017 Time Performed: 18:25:21 PTAGE: 51 years EKG: Sinus rhythm NORMAL ECG Since PREVIOUS TRACING , no significant change noted DOCTOR: Purnima Slater Interpretating Date/Time 06/01/2017 18:22:34
--- NOTE | 2017-06-01 18:22 | EKG ---
Date Performed: 05/31/2017 Time Performed: 16:13:13 PTAGE: 51 years EKG: Sinus rhythm NORMAL ECG Since PREVIOUS TRACING , no significant change noted PREVIOUS TRACIN05/31/2017 13.12 DOCTOR: Purnima Slater Interpretating Date/Time 06/01/2017 18:21:40
--- NOTE | 2017-06-02 14:35 | TR ---
Date Performed: 06/01/2017 Time Performed: 11:00:18 DOCTOR: Purnima Slater DRUG LIST: CLINICAL HISTORY: REASON FOR TEST: Angina REASON FOR ENDING: OBSERVATION: CONCLUSION: Lexiscan stress test was performed under standard four minute protocol. Radionuclid e was injected one minute prior to ending the test. No electrocardiographic abormalities were present to suggest ischemia. Nuclear imaging and interpretation are pending. COMMENTS:
== END 2017-06-01 16:14 | disposition home or self-care (01) ==
LOC: NEPE 12:06 → NEDA 15:17 → NEPGCP 17:03
PROVIDERS: ADMIT Internal Medicine Cardiovascular Disease; ATTEND Internal Medicine Cardiovascular Disease
DX: R07.89 Other chest pain (principal); R51 Headache; R06.02 Shortness of breath; R61 Generalized hyperhidrosis; R42 Dizziness and giddiness; R20.2 Paresthesia of skin; I10 Essential (primary) hypertension; E78.5 Hyperlipidemia, unspecified; Z79.899 Other long term (current) drug therapy
CPT/HCPCS: 70450; 71010; 78452; 80053; 81001; 82550; 82552; 83735; 84100; 84484; 85025; 85610; 85730; 93005; 93017; 96374; 96375; 96376; 99285; A9502; G0378; J0780; J1200; J1885; J2785